=== PATIENT | female | born 1970 | race Caucasian/White ===

== ENCOUNTER 2021-09-25 13:02 | Emergency (ER) | payer BC ==
[~2021-09-25] VITALS: Ht 165.1 cm; Wt 78.5 kg
[2021-09-25] MEDS ORDERED: CLON1TAB PO (13:28)
[2021-09-25] MEDS ORDERED: ROSU20TA2 PO (13:28)
--- NOTE | 2021-09-25 13:34 | NUR ---
PT IS IN ROOM #1A. DR SEAY EVALUATED THE PT.
[2021-09-25 13:41] LABS: HEMATOCRIT 40.2 % (31.2-41.9); MEAN CORPUSCULAR HEMOGLOBIN 30.1 uug (24.7-32.8); MEAN CORPUSCULAR VOLUME 89.3 fL (75.5-95.3); PLATELET COUNT (AUTO) 227 K/uL (179-408)
[2021-09-25 13:46] LABS: POTASSIUM 4.3 mmol/L (3.5-5.1)
[2021-09-25 13:52] LABS: BILIRUBIN,TOTAL 0.4 mg/dL (0.2-1.0); TOTAL PROTEIN, SERUM 7.8 g/dL (6.4-8.2)
[2021-09-25 14:22] LABS: THYROID STIMULATING HORMONE 1.603 mIU/mL (0.358-3.740)
[2021-09-25] MEDS ORDERED: LORAZEPAM 0.5 MG TABLET PO ONE (15:00)
[2021-09-25] MEDS ORDERED: LORAZEPAM 1 MG TABLET ONE (15:01)
--- NOTE | 2021-09-25 17:48 | NUR ---
PT DECIDED TO LEAVE HOSPITAL AMA. DR SEAY EXPLAINED ALL RISKS OF LEAVING HOSPITAL AMA TO THE PT. PT WERBALIZED FULL UNDERSTANDING. PT SIGNED AMA FORM AND LEFT HOSPITAL BY TAXI.
[2021-09-25 17:52] VITALS: BP 131/71
== END 2021-09-25 17:53 | disposition left against medical advice (07) ==
LOC: ER 13:02
DX: R00.2 Palpitations (principal); R23.8 Other skin changes; R77.8 Other specified abnormalities of plasma proteins; Z86.16 Personal history of COVID-19; E78.5 Hyperlipidemia, unspecified; Z88.0 Allergy status to penicillin; F41.9 Anxiety disorder, unspecified; Z79.899 Other long term (current) drug therapy
CPT/HCPCS: 36415; 70030-TC; 71045; 84443; 85025; 93005; A4663

== ENCOUNTER 2025-04-09 23:51 | Inpatient (IN) | payer BC ==
[~2025-04-09] VITALS: Ht 165.1 cm; Wt 78.9 kg
[~2025-04-09 23:51] MED LIST: CLON1TAB PO; ROSU20TA2 PO
[2025-04-10 03:07] LABS: BASOPHILS % (AUTO) 0.5 % (0.0-2.0); EOSINOPHILS # (AUTO) 0.1 K/uL (0.0-0.7); EOSINOPHILS % (AUTO) 0.9 % (0.0-7.0); HEMATOCRIT 38.6 % (31.2-41.9); HEMOGLOBIN 13.1 g/dL (10.9-14.3); LYMPHOCYTES # (AUTO) 1.9 K/uL (0.8-4.8); MEAN CORPUSCULAR HEMOGLOBIN 30.3 uug (24.7-32.8); MEAN CORPUSCULAR HGB CONC 34 g/dL (32.3-35.6); MEAN CORPUSCULAR VOLUME 89.3 fL (75.5-95.3); MONOCYTES # (AUTO) 0.6 K/uL (0.1-1.30); NEUTROPHILS % (AUTO) 65.6 % (38.5-71.5); PLATELET COUNT (AUTO) 213 K/uL (179-408); RED BLOOD CELL COUNT(AUTO) 4.32 MIL/uL (3.63-4.92); RED CELL DISTRIBUTION WIDTH 13.1 % (12.3-17.7); WHITE BLOOD COUNT (AUTO) 7.7 K/uL (3.8-11.8)
[2025-04-10] MEDS ORDERED: TRAZ-182 PO (03:08)
[2025-04-10 03:10] LABS: DIFFERENTIAL COMMENT 1
[2025-04-10 03:16] LABS: CALCIUM 9.4 mg/dL (8.5-10.1); CARBON DIOXIDE 27 mmol/L (21-32); CHLORIDE 105 mmol/L (98-107); CREATININE 0.8 mg/dL (0.6-1.3); GLUCOSE 111 mg/dL (74-106); SODIUM SERUM 140 mmol/L (136-145); UREA NITROGEN, BLOOD 22 mg/dL (7-18)
[2025-04-10 03:28] LABS: ALANINE AMINOTRANSFERASE 14 U/L (14-59); ALBUMIN 3.5 g/dL (3.4-5.0); ALKALINE PHOSPHATASE 71 U/L (50-136); ASPARTATE AMINOTRANSFERASE 14 U/L (15-37); BILIRUBIN,DIRECT 0.1 mg/dL (0.0-0.2); BILIRUBIN,TOTAL 0.3 mg/dL (0.2-1.0); NT-PRO BNP 21 pg/mL (0-125); TOTAL PROTEIN, SERUM 7.1 g/dL (6.4-8.2)
[2025-04-10] MEDS ORDERED: LORAZEPAM 2 MG/1 ML VIAL ONE (04:31)
[2025-04-10] MEDS: LORAZEPAM 2 MG/1 ML VIAL IV ONE (04:41)
[2025-04-10] MEDS ORDERED: MAGNESIUM HYDROXIDE 30 ML LIQUID UDC PO PRN (05:00)
[2025-04-10] MEDS ORDERED: ACETAMINOPHEN 325 MG TABLET PO PRN (05:00)
[2025-04-10] MEDS ORDERED: ONDANSETRON 4 MG/2 ML VIAL IV PRN (05:00)
[2025-04-10] MEDS ORDERED: HEPARIN SODIUM,PORCINE/PF 500 UNIT/5 ML SYR MC SCH (05:00)
[2025-04-10 05:10] VITALS: BP 123/71; TEMP 98.3; O2SAT 98
[2025-04-10] MEDS ORDERED: HEPARIN SODIUM,PORCINE 5,000 UNITS/ML VIAL ONE (05:58)
[2025-04-10 07:23] LABS: BASOPHILS % (AUTO) 0.2 % (0.0-2.0); EOSINOPHILS % (AUTO) 0.5 % (0.0-7.0); HEMATOCRIT 38.6 % (31.2-41.9); HEMOGLOBIN 13.1 g/dL (10.9-14.3); LYMPHOCYTES # (AUTO) 1.5 K/uL (0.8-4.8); LYMPHOCYTES % (AUTO) 23.8 % (20.5-51.5); MEAN CORPUSCULAR HEMOGLOBIN 30.2 uug (24.7-32.8); MEAN CORPUSCULAR HGB CONC 34 g/dL (32.3-35.6); MEAN CORPUSCULAR VOLUME 88.7 fL (75.5-95.3); MONOCYTES # (AUTO) 0.4 K/uL (0.1-1.30); MONOCYTES % (AUTO) 5.8 % (0.0-11.0); NEUTROPHILS # (AUTO) 4.4 K/uL (1.8-8.9); NEUTROPHILS % (AUTO) 69.7 % (38.5-71.5); PLATELET COUNT (AUTO) 223 K/uL (179-408); RED BLOOD CELL COUNT(AUTO) 4.35 MIL/uL (3.63-4.92); RED CELL DISTRIBUTION WIDTH 13.5 % (12.3-17.7); WHITE BLOOD COUNT (AUTO) 6.3 K/uL (3.8-11.8)
[2025-04-10 07:37] LABS: DIFFERENTIAL COMMENT 1
[2025-04-10 07:44] LABS: CALCIUM 9.1 mg/dL (8.5-10.1); CREATININE 0.7 mg/dL (0.6-1.3); MAGNESIUM 2.1 mg/dL (1.8-2.4); PHOSPHOROUS 4.1 mg/dL (2.5-4.9)
[2025-04-10] MEDS: HEPARIN SODIUM,PORCINE 5,000 UNITS/ML VIAL SQ SCH (08:28)
[2025-04-10] MEDS ORDERED: ASPI81TA31 PO (10:18)
[2025-04-10] MEDS ORDERED: BUSP10TA3 PO (10:20)
[2025-04-10 12:00] VITALS: BP 120/57; TEMP 94.7; O2SAT 96
[2025-04-10] MEDS ORDERED: busPIRone 10 MG TABLET PO PRN (16:45)
[2025-04-10] MEDS ORDERED: CLONAZEPAM 1 MG TABLET PO PRN (16:45)
[2025-04-10 19:00] VITALS: BP 117/61; TEMP 97.3; O2SAT 96
[2025-04-10] MEDS: TEMAZEPAM 15 MG CAPSULE PO SCH (20:54)
[2025-04-11] VITALS: BP 101/54; TEMP 98.5; O2SAT 95
[2025-04-11 05:00] VITALS: BP 112/59; TEMP 98.5; O2SAT 97
[2025-04-11 06:48] LABS: BASOPHILS % (AUTO) 0.2 % (0.0-2.0); EOSINOPHILS # (AUTO) 0.1 K/uL (0.0-0.7); EOSINOPHILS % (AUTO) 1.5 % (0.0-7.0); HEMATOCRIT 40.7 % (31.2-41.9); HEMOGLOBIN 13.5 g/dL (10.9-14.3); LYMPHOCYTES # (AUTO) 2.1 K/uL (0.8-4.8); LYMPHOCYTES % (AUTO) 36.1 % (20.5-51.5); MEAN CORPUSCULAR HEMOGLOBIN 30.1 uug (24.7-32.8); MEAN CORPUSCULAR HGB CONC 33 g/dL (32.3-35.6); MEAN CORPUSCULAR VOLUME 90.6 fL (75.5-95.3); MONOCYTES # (AUTO) 0.4 K/uL (0.1-1.30); MONOCYTES % (AUTO) 6.8 % (0.0-11.0); NEUTROPHILS # (AUTO) 3.3 K/uL (1.8-8.9); NEUTROPHILS % (AUTO) 55.4 % (38.5-71.5); PLATELET COUNT (AUTO) 227 K/uL (179-408); RED BLOOD CELL COUNT(AUTO) 4.49 MIL/uL (3.63-4.92); RED CELL DISTRIBUTION WIDTH 13.3 % (12.3-17.7); WHITE BLOOD COUNT (AUTO) 5.9 K/uL (3.8-11.8)
[2025-04-11 07:10] LABS: DIFFERENTIAL COMMENT 1
[2025-04-11 07:11] LABS: CALCIUM 9.6 mg/dL (8.5-10.1); CREATININE 0.8 mg/dL (0.6-1.3); MAGNESIUM 2.2 mg/dL (1.8-2.4); PHOSPHOROUS 3.5 mg/dL (2.5-4.9); POTASSIUM 3.7 mmol/L (3.5-5.1)
[2025-04-11 07:33] VITALS: BP 117/57; TEMP 98; O2SAT 97
[2025-04-11] MEDS: ASPIRIN 81 MG TAB.CHEW PO SCH (08:49)
[2025-04-11] MEDS: ATORVASTATIN 40 MG TABLET PO SCH (08:49)
[2025-04-11] MEDS ORDERED: Medication Not On Formulary EA (Rosuvastatin Calcium (Crestor) 1 TAB) PO SCH (09:00)
[2025-04-11] MEDS ORDERED: TEMA15CA PO (11:09)
[2025-04-11] MEDS ORDERED: ALPR0.25 PO (11:09)
[2025-04-11 11:33] VITALS: BP 124/65; TEMP 98; O2SAT 97
== END 2025-04-11 12:30 | disposition home or self-care (01) | DRG 205 ==
LOC: ER 23:51 → TELE3 04-10 04:58
PROVIDERS: ADMIT Nurse Practitioner Family; ATTEND Nurse Practitioner Acute Care
DX: M94.0 Chondrocostal junction syndrome [Tietze] (principal); I21.A1 Myocardial infarction type 2; F41.9 Anxiety disorder, unspecified; Z82.49 Family history of ischemic heart disease and other diseases of the circulatory system; Z88.0 Allergy status to penicillin; E78.00 Pure hypercholesterolemia, unspecified; Z79.899 Other long term (current) drug therapy
CPT/HCPCS: 36415; 71045; 83735; 84100; 84443; 84484; 85025; 85730; 93005; 93307; G0378; J1642; J1644; J2060